=== PATIENT | female | born 1980 | race Caucasian/White ===

== ENCOUNTER 2022-09-15 06:12 | Day surgery (SDC) | payer OTHER ==
[2022-09-13 14:33] VITALS: BMI 21.4
[2022-09-15] MEDS ORDERED: PROPOFOL 20 ML ONE (07:06)
[2022-09-15] MEDS ORDERED: Fentanyl 100 MCG/2 ML VIAL ONE (07:06)
[2022-09-15] MEDS ORDERED: Lidocaine 1% PF 5 ML VIAL ONE (07:09)
[2022-09-15] MEDS ORDERED: Rocuronium Bromide 10 MG/ML (10ML VIAL) ONE (07:09)
[2022-09-15] MEDS ORDERED: Dexamethasone 4 mg/ml Vial ONE (07:09)
[2022-09-15] MEDS ORDERED: Ondansetron PF 4 MG/2 ML Vial ONE (07:09)
[2022-09-15] MEDS ORDERED: Midazolam HCl 2 mg/2 ml Vial ONE (07:14)
[2022-09-15] MEDS ORDERED: Levofloxacin 500 mg/D5W 100 ml Premix Bag ONE (07:22)
[2022-09-15] MEDS ORDERED: Ketorolac Tromethamine 30 MG/ML VIAL ONE (08:17)
[2022-09-15] MEDS ORDERED: HYDROcodone/Acetaminophen 5/325 mg Tablet ONE (08:39)
== END 2022-09-15 09:30 | disposition home or self-care (01) ==
LOC: CSHSDC 06:12
PROVIDERS: ATTEND Urology
PROC: 0TBB7ZZ Excision of Bladder, Via Natural or Artificial Opening (ICD-10-PCS; principal; 2022-09-15)
DX: N32.9 Bladder disorder, unspecified (principal); R31.29 Other microscopic hematuria
CPT/HCPCS: 88305; J1100; J1885; J1956; J2250; J2405; J2704; J3010